=== PATIENT | female | born 1995 | race Caucasian/White ===

== ENCOUNTER 2020-06-10 15:01 | Emergency (ER) | payer BC ==
--- NOTE | 2020-06-10 16:07 | EDM.PDOC ---
ED HPI GENERAL MEDICAL PROBLEM - General Chief Complaint: General Stated Complaint: UTI Time Seen by Provider: 06/10/20 15:15 Source of Information: Reports: Patient History Limitations: Reports: No Limitations - History of Present Illness INITIAL COMMENTS - FREE TEXT/NARRATIVE: Patient presents to the ER via ambulatory with mid deep abdominal pain, urinary frequency, odorous urine. States it started 2-3 weeks ago, she thought it may have something to do with her menstrual cycle. location of pain -lower abd Quality of pain -dull ache . intensity - 3-4/10 relieving factor None no aggravating factor she feels some urine discomfort denies any fever ,nausea ,vomiting ,headache ,chest pain Middle Abdomen Pain Score (Numeric/FACES): 2 - Related Data Allergies Allergy/AdvReac Type Severity Reaction Status Date / Time No Known Allergies Allergy Verified 06/10/20 15:24 Home Meds: Home Meds NK [No Known Home Meds] 06/10/20 [History] Social & Family History - Family History Family Medical History: No Pertinent Family History ED ROS GENERAL - Review of Systems Review Of Systems: See Below Constitutional: Reports: No Symptoms Respiratory: Reports: No Symptoms, Shortness of Breath, Wheezing Cardiovascular: Reports: Dyspnea on Exertion, Lightheadedness, Orthopnea GI/Abdominal: Reports: Other (reports lower abd pain ) : Reports: Dysuria (reports some dysuria ) Neurological: Reports: No Symptoms ED EXAM, GENERAL - Physical Exam Exam: See Below Exam Limited By: No Limitations General Appearance: Alert, WD/WN, No Apparent Distress Head: Atraumatic, Normocephalic Neck: Supple Respiratory/Chest: No Respiratory Distress, Lungs Clear, Normal Breath Sounds, No Accessory Muscle Use, Chest Non-Tender Cardiovascular: Regular Rate, Rhythm, No Edema, No Gallop, No JVD, No Murmur, No Rub Extremities: Normal Inspection, Normal Range of Motion, Non-Tender, No Pedal Edema Neurological: Alert, Oriented, CN II-XII Intact Course - Vital Signs Text/Narrative:: 24 year old female came with c/o lower abd pain Vitals monitored labs ordered urine was negative decline CBC & CMP Plan Ultrasonography of lower abd & f/u on clinic Use ibuprofen for pain use plenty of water Last Recorded V/S: Last Vital Signs Temp 98.7 F 06/10/20 15:26 Pulse 74 06/10/20 15:26 Resp 16 06/10/20 15:26 BP 133/87 06/10/20 15:26 Pulse Ox 100 06/10/20 15:26 - Orders/Labs/Meds Orders: Active Orders 24 hr Category Date Time Status CBC WITH AUTO DIFF [HEME] Stat Lab 06/10/20 15:32 Ordered COMPREHENSIVE METABOLIC PN,CMP [CHEM] Stat Lab 06/10/20 15:32 Ordered Labs: Laboratory Tests 06/10/20 Range/Units 15:30 Urine Color Yellow Urine Appearance Clear (CLEAR) Urine pH 6.0 (5.0-8.0) Ur Specific [place] 1.015 (1.003-1.030) Urine Protein Negative (NEGATIVE) mg/dL Urine Glucose (UA) Negative (NEGATIVE) mg/dL Urine Ketones Negative (NEGATIVE) mg/dL Urine Occult Blood Negative (NEGATIVE) Urine Nitrite Negative (NEGATIVE) Urine Bilirubin Negative (NEGATIVE) Urine Urobilinogen 0.2 (0.2-1.0) E.U./dL Ur Leukocyte Esterase Negative (NEGATIVE) Departure - Departure Time of Disposition: 16:00 Disposition: Home, Self-Care 01 Condition: Good Clinical Impression: Lower abdominal pain - Discharge Information *PRESCRIPTION DRUG MONITORING PROGRAM REVIEWED*: No *COPY OF PRESCRIPTION DRUG MONITORING REPORT IN PATIENT DIMITRI: No Referrals: PCP,None [Primary Care Provider] - Forms: ED Department Discharge Additional Instructions: Discharge home. Urine sample negative for UTI. Drink plenty of fluids. The hospital will call you with time for pelvic ultrasound. Tylenol and Ibuprofen as directed for pain. Follow up in the clinic with Dr. Poe. Call or return to the ER if you have any issues or concerns. Sepsis Event Note (ED) - Evaluation Sepsis Screening Result: No Definite Risk - Focused Exam Vital Signs: Vital Signs Temp Pulse Resp BP Pulse Ox 06/10/20 15:26 98.7 F 74 16 133/87 100 06/10/20 15:20 98.7 F 74 16 133/87 100 - Problem List & Annotations (1) Lower abdominal pain SNOMED Code(s): 03628883 Code(s): R10.30 - LOWER ABDOMINAL PAIN, UNSPECIFIED Status: Acute Priority: Medium Onset Date: ~06/10/20 - My Orders Last 24 Hours: My Active Orders 06/10/20 15:32 CBC WITH AUTO DIFF [HEME] Stat COMPREHENSIVE METABOLIC PN,CMP [CHEM] Stat - Assessment/Plan Last 24 Hours: My Active Orders 06/10/20 15:32 CBC WITH AUTO DIFF [HEME] Stat COMPREHENSIVE METABOLIC PN,CMP [CHEM] Stat Assessment:: Lower abdominal pain Plan: Ultrasonography of abdomen F/U with primary care use Ibuprofen for pain drink plenty of water
== END 2020-06-10 16:00 | disposition home or self-care (01) ==
LOC: LB.ED 15:01
DX: R10.30 Lower abdominal pain, unspecified (principal)
CPT/HCPCS: 81003; 99282; 99284